=== PATIENT | female | born 1960 | race Caucasian/White ===

== ENCOUNTER 2016-06-13 15:13 | Emergency (ER) | payer MEDICARE, MEDICAID ==
[~2016-06-13] VITALS: Ht 162.6 cm; Wt 73.0 kg
[2016-06-13] MEDS ORDERED: HYDROmorphone 1 MG/ML (DILAUDID) SYRINGE IM ONE (15:55)
[2016-06-13 17:47] VITALS: BP 109/62
== END 2016-06-13 17:35 | disposition home or self-care (01) ==
LOC: ED 15:17
DX: S00.03XA Contusion of scalp, initial encounter (principal); W10.9XXA Fall (on) (from) unspecified stairs and steps, initial encounter; Y92.008 Other place in unspecified non-institutional (private) residence as the place of occurrence of the external cause; F11.23 Opioid dependence with withdrawal; R51 Headache; R11.0 Nausea; T40.2X5A Adverse effect of other opioids, initial encounter; F17.210 Nicotine dependence, cigarettes, uncomplicated
CPT/HCPCS: 70450; 72125; 76376; 96372; 99283; J1170